=== PATIENT | female | born 1990 | race Caucasian/White ===

== ENCOUNTER 2017-07-16 15:47 | Emergency (ER) | payer BC, SELFPAY ==
[~2017-07-16] VITALS: Ht 167.6 cm; Wt 120.3 kg
[~2017-07-16 15:47] MED LIST: AMOX500C PO; HYDR-3713 PO; IBUP1TAB6 GT; PERI0.126 MT
[2017-07-16 16:01] VITALS: BP 142/83
[2017-07-16] MEDS ORDERED: [UNRECOGNIZED DRUG - CODE] PO (16:06)
== END 2017-07-16 16:19 | disposition home or self-care (01) ==
LOC: M ED 15:47
DX: J06.9 Acute upper respiratory infection, unspecified (principal); B34.9 Viral infection, unspecified; E66.9 Obesity, unspecified

== ENCOUNTER → 2018-04-07 | Outpatient (REF) | payer OTHER ==
[2018-04-07 13:27] LABS: BASO % 0.4 % (0.0-1.0); EOS % 0.6 % (0.0-3.0); HEMATOCRIT 41.2 % (36.0-47.0); HEMOGLOBIN 13.6 g/dl (12.0-15.5); IMMATURE GRANULOCYTE % 0.2 % (0-3.0); LYMPH # 2.1 10^3/uL (1.5-6.5); LYMPH % 41.6 % (24.0-44.0); MEAN CORPUSCULAR HEMOGLOBIN 29.3 pg (27.0-33.0); MEAN CORPUSCULAR VOLUME 88.8 fl (80.0-96.0); MONO # 0.3 10^3/uL (0.0-0.8); MONO % 5.8 % (0.0-5.0); NEUTROPHILS # 2.6 10^3/uL (1.8-7.7); NEUTROPHILS % 51.4 % (36.0-66.0); PLATELET COUNT, AUTOMATED 377 10^3/uL (150-450); RED BLOOD COUNT 4.64 10^6/uL (4.00-5.40); RED CELL DISTRIBUTION WIDTH 12.1 % (11.5-14.5); WHITE BLOOD COUNT 5.1 10^3/uL (4.0-10.0)
[2018-04-07 13:41] LABS: TESTOSTERONE 36 NG/DL (14-76)
[2018-04-07 13:41] LABS: PROLACTIN 18.2 NG/ML
[2018-04-07 13:55] LABS: FREE T4 1.03 NG/DL (0.76-1.46); THYROID STIMULATING HORMONE 0.956 uIU/ML (0.358-3.740)
[2018-04-07 14:01] LABS: ESTIMATED AVERAGE GLUCOSE 97 MG/DL (60-110)
== END ==
LOC: M LABDRWAD 12:43
DX: N92.1 Excessive and frequent menstruation with irregular cycle (principal); L68.0 Hirsutism
CPT/HCPCS: 84146

== ENCOUNTER → 2018-06-08 | Outpatient (CLI) | payer OTHER ==
[2018-06-08 19:50] LABS: BASO % 0.3 % (0.0-1.0); EOS # 0.1 10^3/uL (0.0-0.50); EOS % 0.7 % (0.0-3.0); HEMATOCRIT 40.2 % (36.0-47.0); HEMOGLOBIN 13.5 g/dl (12.0-15.5); IMMATURE GRANULOCYTE % 0.3 % (0-3.0); LYMPH % 36.2 % (24.0-44.0); MEAN CORPUSCULAR HEMOGLOBIN 29.3 pg (27.0-33.0); MEAN CORPUSCULAR HGB CONC 33.6 g/dl (32.0-36.5); MEAN CORPUSCULAR VOLUME 87.2 fl (80.0-96.0); MONO # 0.5 10^3/uL (0.0-0.8); MONO % 4.5 % (0.0-5.0); NEUTROPHILS # 6.4 10^3/uL (1.8-7.7); PLATELET COUNT, AUTOMATED 385 10^3/uL (150-450); RED BLOOD COUNT 4.61 10^6/uL (4.00-5.40)
[2018-06-08 19:54] LABS: ANION GAP 9 MEQ/L (8-16); BLOOD UREA NITROGEN 11 MG/DL (7-18); CALCIUM LEVEL 8.7 MG/DL (8.5-10.1); CARBON DIOXIDE LEVEL 25 MEQ/L (21-32); CHLORIDE LEVEL 107 MEQ/L (98-107); CREATININE FOR GFR 0.73 MG/DL (0.55-1.30); GLOMERULAR FILTRATION RATE > 60.0 (>60); GLUCOSE, FASTING 97 MG/DL (70-100); SODIUM LEVEL 141 MEQ/L (136-145)
[2018-06-11 00:10] LABS: EBV VIRAL CAPSID AG IgM <36.0 U/mL (0.0-35.9)
[2018-06-11 00:10] LABS: EBV AB TO NUCLEAR ANTIGEN 61.6 U/mL (0.0-17.9)
== END ==
LOC: M ADAMS 17:20
DX: J02.0 Streptococcal pharyngitis (principal)

== ENCOUNTER → 2018-06-17 | Outpatient (REF) | payer OTHER | LOC: M LAB REF 12:11 | DX: J02.9 Acute pharyngitis, unspecified (principal) ==

== ENCOUNTER 2019-01-28 08:18 | Emergency (ER) | payer OTHER ==
[~2019-01-28] VITALS: Ht 167.6 cm; Wt 123.4 kg
[~2019-01-28 08:18] MED LIST changes: +GUAI100S27 PO; +KARI28TA; +[UNRECOGNIZED DRUG - CODE] PO
[2019-01-28] MEDS ORDERED: ALBU17IN2 INH (08:53)
[2019-01-28] MEDS ORDERED: GUAI1SOL2 PO (08:56)
[2019-01-28] MEDS ORDERED: SUCR1SS PO (08:57)
[2019-01-28] MEDS ORDERED: KETOROLAC 60 MG/2 ML VIAL (J1885) IM ONE (09:00)
[2019-01-28 09:54] VITALS: BP 118/70
== END 2019-01-28 09:55 | disposition home or self-care (01) ==
LOC: M ED 08:18
DX: J06.9 Acute upper respiratory infection, unspecified (principal); R07.89 Other chest pain; Z88.8 Allergy status to other drugs, medicaments and biological substances
CPT/HCPCS: 85379; 96372; 99283; J1885

== ENCOUNTER 2019-02-01 11:35 | Emergency (ER) | payer OTHER ==
[~2019-02-01] VITALS: Ht 167.6 cm; Wt 122.6 kg
[~2019-02-01 11:35] MED LIST changes: +ALBU17IN2 INH; +GUAI1SOL2 PO; +SUCR1SS PO
--- NOTE | 2019-02-01 13:52 | REP ---
CHEST, TWO VIEWS: Comparison: 01/27/2019. There is no evidence of acute infiltrate. No pleural effusion is seen. The heart is normal in size. The mediastinal silhouette is unremarkable. The visualized osseous structures are intact. IMPRESSION: No acute pulmonary disease. Electronically Signed by Lito Mckee MD 02/03/2019 11:47 A
[2019-02-01 14:15] VITALS: BP 126/88
[2019-02-01] MEDS ORDERED: PRED20TA PO (14:21)
== END 2019-02-01 14:29 | disposition home or self-care (01) ==
LOC: M ED 11:35
DX: J06.9 Acute upper respiratory infection, unspecified (principal); Z79.899 Other long term (current) drug therapy; Z88.8 Allergy status to other drugs, medicaments and biological substances

== ENCOUNTER → 2020-04-03 | Outpatient (CLI) | payer OTHER ==
[~2020-04-03] MED LIST changes: -ALBU17IN2 INH; +GUAI100L6 PO; -GUAI100S27 PO; +METHACHOLINE KIT (J7674) INH ONE; +PRED20TA PO; +PROV108A INH
--- NOTE | 2020-04-03 11:06 | PFTRPT ---
Height: 68.00 Inches Weight: 279.00 Lbs BSA: 2.35 Diagnosis: R06.00 DATE OF STUDY: 04/03/2020 ORDERED BY: Dr. White INTERPRETATION: Study of excellent technical quality. Under protocol, methacholine was administered. At a dose of 0.25 mg (1.375 CDUs), a 27% decline in the FEV1 was noted. PC of 0.08 is significant. Flow rates did return to baseline post bronchodilator administration. IMPRESSION: Positive methacholine challenge study. MTDD
== END ==
LOC: M CARPUL 10:27
PROVIDERS: ATTEND Internal Medicine Pulmonary Disease
DX: R06.00 Dyspnea, unspecified (principal)
CPT/HCPCS: 94070; J7674

== ENCOUNTER → 2020-07-26 | Outpatient (REF) | payer OTHER ==
[~2020-07-26] MED LIST changes: -METHACHOLINE KIT (J7674) INH ONE
[2020-07-26 13:15] LABS: BASO % 0.4 % (0.0-1.0); EOS % 0.5 % (0.0-3.0); HEMATOCRIT 43.2 % (36.0-47.0); HEMOGLOBIN 13.9 g/dl (12.0-15.5); LYMPH # 2.4 10^3/uL (1.5-5.0); LYMPH % 29.7 % (24.0-44.0); MEAN CORPUSCULAR HEMOGLOBIN 29.3 pg (27.0-33.0); MEAN CORPUSCULAR HGB CONC 32.2 g/dl (32.0-36.5); MEAN CORPUSCULAR VOLUME 90.9 fl (80.0-96.0); MONO # 0.5 10^3/uL (0.0-0.8); MONO % 6.6 % (0.0-5.0); NEUTROPHILS % 62.4 % (36.0-66.0); PLATELET COUNT, AUTOMATED 390 10^3/uL (150-450); RED BLOOD COUNT 4.75 10^6/uL (4.00-5.40)
[2020-07-26 13:20] LABS: ALBUMIN 3.4 GM/DL (3.2-5.2); ALT/SGPT 19 U/L (12-78); BILIRUBIN,TOTAL 0.6 MG/DL (0.2-1.0); BLOOD UREA NITROGEN 12 MG/DL (7-18); CARBON DIOXIDE LEVEL 28 MEQ/L (21-32); CHLORIDE LEVEL 107 MEQ/L (98-107); CHOLESTEROL LEVEL 251 MG/DL (<200); CHOLESTEROL RISK RATIO 3.585 (<5); CREATININE FOR GFR 0.79 MG/DL (0.55-1.30); GLOMERULAR FILTRATION RATE > 60.0 (>60); GLUCOSE, FASTING 80 MG/DL (70-100); HDL CHOLESTEROL 70 MG/DL (>40); LDL CHOLESTEROL 149 MG/DL (<100); NON-HDL-C 181 MG/DL; POTASSIUM SERUM 4.3 MEQ/L (3.5-5.1); SODIUM LEVEL 139 MEQ/L (136-145); TOTAL PROTEIN 7.2 GM/DL (6.4-8.2); TRIGLYCERIDES LEVEL 160 MG/DL (<150)
== END ==
LOC: M SFHCADAM 12:27
PROVIDERS: ATTEND Family Medicine
DX: Z00.00 Encounter for general adult medical examination without abnormal findings (principal)

== ENCOUNTER → 2020-09-13 | Outpatient (REF) | payer OTHER | LOC: M SFHCADAM 15:05 | DX: Z32.00 Encounter for pregnancy test, result unknown (principal) ==

== ENCOUNTER → 2020-10-04 | Outpatient (REF) | payer OTHER ==
[2020-10-04 13:59] LABS: FREE T4 1.08 NG/DL (0.76-1.46); LUTEINIZING HORMONE 3.5 mIU/mL; PROLACTIN 5.1 NG/ML; THYROID STIMULATING HORMONE 0.836 uIU/ML (0.358-3.740)
== END ==
LOC: M SFHCADAM 09:15
PROVIDERS: ATTEND Family Medicine
DX: N91.2 Amenorrhea, unspecified (principal)

== ENCOUNTER → 2020-10-18 | Outpatient (CLI) | payer OTHER ==
--- NOTE | 2020-10-19 02:49 | REP ---
INDICATION: PELVIC PAIN AMENORRHEA COMPARISON: 10/24/2013 TECHNIQUE: Transabdominal pelvic ultrasound followed by transvaginal examination for better evaluation of the endometrium and adnexa with color Doppler evaluation of the ovaries. FINDINGS: Bladder is unremarkable and measures 8.8 x 10.4 x 10.0 cm. Normal anteverted uterus measures 7.3 x 2.6 x 3.8 cm. The endometrial complex measures 1.8 mm thickness. No discrete uterine or endometrial abnormalities are appreciated. Bilateral ovaries are normal in appearance and vascularity without evidence for torsion. Right ovary measures 2.0 x 1.6 x 2.0 cm; R I = 0.52. Left ovary measures 2.6 x 1.8 x 2.0 cm and includes 1.2 cm dominant follicle; R I = 0.57. No significant pelvic fluid or adnexal mass lesion noted. IMPRESSION: Normal pelvic ultrasound. <Electronically signed by Taran Vila > 10/19/20 0245
== END ==
LOC: M RAD 10:09
PROVIDERS: ATTEND Family Medicine
DX: N91.2 Amenorrhea, unspecified (principal)

== ENCOUNTER → 2021-08-09 | Outpatient (REF) | LOC: M LABSMTC 10:25 | PROVIDERS: ATTEND Pediatrics | DX: Z20.828 Contact with and (suspected) exposure to other viral communicable diseases (principal) ==

== ENCOUNTER 2021-10-28 09:48 | Emergency (ER) | payer BC, OTHER ==
[~2021-10-28] VITALS: Ht 167.6 cm; Wt 129.6 kg
[2021-10-28 09:48] VITALS: BP 139/84
--- OUTSIDE RECORDS SUMMARY | 2021-10-28 09:57 | CCD ---
Author Author [facility] Organization [facility] Address Unknown Phone Unavailable Care Team Providers Care Store Team Leader Name Role Phone Clair WHITFIELD MD Unavailable Unavailable Clair WHITFIELD MD Unavailable Unavailable Clair WHITFIELD MD Unavailable Unavailable Clair WHITFIELD MD Unavailable Unavailable Clair WHITFIELD MD Unavailable Unavailable Clair WHITFIELD MD Unavailable Unavailable Clair WHITFIELD MD Unavailable Unavailable Clair WHITFIELD MD Unavailable Unavailable Clair WHITFIELD MD Unavailable Unavailable Clair WHITFIELD MD Unavailable Unavailable Clair WHITFIELD MD Unavailable Unavailable Clair WHITFIELD MD Unavailable Unavailable Clair WHITFIELD MD Unavailable Unavailable Clair WHITFIELD MD Unavailable Unavailable Clair WHITFIELD MD Unavailable Unavailable Clair WHITFIELD MD Unavailable Unavailable Clair WHITFIELD MD Unavailable Unavailable Clair WHITFIELD MD Unavailable Unavailable Clair WHITFIELD MD Unavailable Unavailable Clair WHITFIELD MD Unavailable Unavailable Clair WHITFIELD MD Unavailable Unavailable Clair WHITFIELD MD Unavailable Unavailable Clair WHITFIELD MD Unavailable Unavailable Clair WHITFIELD MD Unavailable Unavailable Clair WHITFIELD MD Unavailable Unavailable Clair WHITFIELD MD Unavailable Unavailable Clair WHITFIELD MD Unavailable Unavailable Clair WHITFIELD MD Unavailable Unavailable Clair WHITFIELD MD Unavailable Unavailable Clair WHITFIELD MD Unavailable Unavailable Clair WHITFIELD MD Unavailable Unavailable Clair WHITFIELD MD Unavailable Unavailable Clair WHITFIELD MD Unavailable Unavailable Clair WHITFIELD MD Unavailable Unavailable Clair WHITFIELD MD Unavailable Unavailable Clair WHITFIELD MD Unavailable Unavailable Clair WHITFIELD MD Unavailable Unavailable Clair WHITFIELD MD Unavailable Unavailable Clair WHITFIELD MD Unavailable Unavailable Clair WHITFIELD MD Unavailable Unavailable Clair WHITFIELD MD Unavailable Unavailable Clair WHITFIELD MD Unavailable Unavailable Clair WHITFIELD MD Unavailable Unavailable Clair WHITFIELD MD Unavailable Unavailable Clair WHITFIELD MD Unavailable Unavailable [facility] Unavailable Jen Carrion MD Unavailable Unavailable Jen Carrion MD Unavailable Unavailable Jen Carrion MD Unavailable Unavailable Jen Carrion MD Unavailable Unavailable Jen Carrion MD Unavailable Unavailable Jen Carrion MD Unavailable Unavailable Jen Carrion MD Unavailable Unavailable Jen Carrion MD Unavailable Unavailable Jen Carrion MD Unavailable Unavailable Jen Carrion MD Unavailable Unavailable Jen Carrion MD Unavailable Unavailable Jen Carrion MD Unavailable Unavailable Jen Carrion MD Unavailable Unavailable Jen Carrion MD Unavailable Unavailable Jen Carrion MD Unavailable Unavailable Jen Carrion MD Unavailable Unavailable Jen Carrion MD Unavailable Unavailable Jen Carrion MD Unavailable Unavailable Jen Carrion MD Unavailable Unavailable Jen Carrion MD Unavailable Unavailable Jen Carrion MD Unavailable Unavailable Jen Carrion MD Unavailable Unavailable Jen Carrion MD Unavailable Unavailable Jen Carrion MD Unavailable Unavailable Jen Carrion MD Unavailable Unavailable RING, K FROY PA Unavailable Unavailable RING, K FROY PA Unavailable Unavailable RING, K FROY PA Unavailable Unavailable RING, K FROY PA Unavailable Unavailable RING, K FROY PA Unavailable Unavailable RING, K FROY PA Unavailable Unavailable RING, K FROY PA Unavailable Unavailable RING, K FROY PA Unavailable Unavailable RING, K FROY PA Unavailable Unavailable RING, K FROY PA Unavailable Unavailable RING, K FROY PA Unavailable Unavailable RING, K FROY PA Unavailable Unavailable RING, K FROY PA Unavailable Unavailable RING, K FROY PA Unavailable Unavailable RING, K FROY PA Unavailable Unavailable RING, K FROY PA Unavailable Unavailable RING, K FROY PA Unavailable Unavailable RING, K FROY PA Unavailable Unavailable RING, K FROY PA Unavailable Unavailable RING, K FROY PA Unavailable Unavailable RING, K FROY PA Unavailable Unavailable RING, K FROY PA Unavailable Unavailable RING, K FROY PA Unavailable Unavailable Flaco, A Mary DDS Unavailable Unavailable Flaco, A Mary DDS Unavailable Unavailable Flaco, A Mary DDS Unavailable Unavailable Flaco, A Mary DDS Unavailable Unavailable Re-disclosure Warning The records that you are about to access may contain information from federally-assisted alcohol or drug abuse programs. If such information is present, then the following federally mandated warning applies: This information has been disclosed to you from records protected by federal confidentiality rules (42 CFR part 2). The federal rules prohibit you from making any further disclosure of this information unless further disclosure is expressly permitted by the written consent of the person to whom it pertains or as otherwise permitted by 42 CFR part 2. A general authorization for the release of medical or other information is NOT sufficient for this purpose. The Federal rules restrict any use of the information to criminally investigate or prosecute any alcohol or drug abuse patient.The records that you are about to access may contain highly sensitive health information, the redisclosure of which is protected by Article 27-F of the [facility] Public Health law. If you continue you may have access to information: Regarding HIV / AIDS; Provided by facilities licensed or operated by the [facility] Office of Mental Health; or Provided by the [facility] Office for People With Developmental Disabilities. If such information is present, then the following [facility] mandated warning applies: This information has been disclosed to you from confidential records which are protected by state law. State law prohibits you from making any further disclosure of this information without the specific written consent of the person to whom it pertains, or as otherwise permitted by law. Any unauthorized further disclosure in violation of state law may result in a fine or skilled nursing sentence or both. A general authorization for the release of medical or other information is NOT sufficient authorization for further disc losure. Family History Family Member Name Family Member Gender Family Member Status Date o f Status Description Data Source(s) Unknown Unknown Problem MEDENT ([facility]) mgm,mother Unknown Unknown Problem MEDENT ([facility]) Unknown Female Problem MEDENT ([facility]) Encounters Encounter Providers Location Date Indications Data Source(s ) Outpatient Attender: Dari Carrion MD 1 06:06:00 PM EDT - 09/06/2021 06:41:19 PM EDT DocuTap ([facility]) [place] [address] [address] 08/10/2021 12:00:00 AM EDT eCW1 ([facility]) [place] [address] [address] 03/20/2021 12:00:00 AM EDT eCW1 ([facility]) [place] [address] [facility] [place] [address] 03/15/2021 12:00:00 AM EDT eCW1 ([facility]) [place] [address] [address] 03/02/2021 12:00:00 AM EDT eCW1 ([facility]) [place] [address] [address] 02/21/2021 12:00:00 AM EDT eCW1 ([facility]) Outpatient 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</td><td>[facility]</td><td>01/10/2021</td><td>1:49PM</td><td>2:32PM</td><td></td>Unknown Attender: Jessica Becerra RD [facility] 01/10/2021 01:49:[address] - 01/10/2021 02:32:00 PM EST DARRYL ([facility]) Unknown<td ID="encounterTypeDescriptionI D1">D Emergency</td><td>Mary Sam DDS</td><td>[facility]</td><td>12/20/2020</td><td>1:47PM</td><td>2:23PM</td><td></td> Attender: Mary Sam DDS [facility] 12/20/2020 01:47:00 PM EST - 12/20/2020 02:23:00 PM EST DARRYL ([facility]) (TV_Virtual) Virtual [facility] Visit [address] [place] [phone] 12/20/2020 12:00:00 AM EST eCW1 ([facility]) Outpatient Attender: FROY [facility] 12/03/2020 07:25:00 AM EST MEDENT ([facility]) (TV_Virtual) Virtual [facility] Visit [address] [place] [phone] 11/29/2020 12:00:00 AM EST eCW1 ([facility]) Outpatient [address] [place] [phone] 11/01/2020 12:00:00 AM EST eCW1 ([facility]) (BHVHLTH) Behave Health Scheduled Visit [address] [place] [address] 10/18/2020 12:00:00 AM EST eCW1 ([facility]) Unknown [address] [place] [phone] 10/06/2020 12:00:00 AM EST eCW1 ([facility]) Outpatient [facility] [address] 10/04/2020 12:00:00 AM EST eCW1 ([facility]) Unknown [address] [place] [phone] 10/04/2020 12:00:00 AM EST eCW1 ([facility]) ([facility]) [facility] Scheduled Visit [address] [place] [address] 09/27/2020 12:00:00 AM EST eCW1 ([facility]) Unknown [address] [facility] [address] 09/14/2020 12:00:00 AM EDT eCW1 ([facility]) ([facility]) [facility] Scheduled Visit [address] [place] [address] 09/13/2020 12:00:00 AM EDT eCW1 ([facility]) Unknown [address] [facility] [address] 09/13/2020 12:00:00 AM EDT eCW1 ([facility]) Outpatient Attender: AZUL Celestin 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 Medications Medication Brand Name Start Date Product Form Dose Route Admi nistrative Instructions Pharmacy Instructions Status Indications Reaction Description Data Source(s) Levonorgestrel/Ethinyl Estradiol Levonorgestrel/Ethinyl Estr adiol 01/17/2021 12:00:00 AM EST ORAL active M EDENT ([facility]) Prednisone 20 MG Oral Tablet Prednisone 12/03/2020 12:00:00 AM EST ORAL active MEDENT ([facility]) Insurance Providers Payer name Policy type / Coverage type Policy ID Covered constitution party ID Covered constitution party's relationship to chapman Policy Chapman Plan Information [employer]BS [place] PPO 302/307 [id number] SP [id number] Workers Comp Workers Compensation 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 [id number] Employee [id number] AN[employer] [id number] ANSI-Commercial [id number] [facility] [employer] [id number] Self [id number] [facility] [employer] [id number] Self [id number] [facility] [employer] [id number] Self [id number] [facility] [id number] SP [id number] [facility] [employer] [id number] Self [id number] [facility] [employer] [id number] Self [id number] [facility] [employer] [id number] Self [id number] [facility] [id number] SP [id number] SELF PAY ONLY [id number] SP [id number] BCBS[employer] [id number] Self SELF PAY ONLY [id number] SP [id number] [employer] [place] PPO 302/307 [id number] SP [id number] [employer] [place] PPO 302/307 [id number] SP [id number] SELF PAY UNAVAILABLE SP UNAVAILA BLE [facility] [id number] SP [id number] [facility] [id number] SP [id number] [facility] [id number] SP [id number] [employer] [id number] Problems, Conditions, and Diagnoses Code Display Name Description Problem Type Effective Dates Data Source(s) F41.9 [id number] Anxiety Problem 10/04/2020 12:00:00 AM ES T eCW1 ([facility]) N91.2 [id number] Amenorrhea Problem 10/04/2020 12:00:00 AM ES T eCW1 ([facility]) F41.1 [id number] Generalized anxiety disorder Problem 020 12:00:00 AM EDT eCW1 ([facility]) Surgeries/Procedures Procedure Description Date Indications Data Source(s) Periodontal Charting Periodontal Charting 01/10/2021 12:00:00 AM ES T DARRYL ([facility]) Oral Hygiene/[facility] Oral Hygiene/[facility] 01/10/2021 12:00:00 AM EST IND [employer] ([facility]) Nutritional Counseling Nutritional Counseling 01/10/2021 12:00:00 A M bodaplanes ([facility]) Prophylaxis Adult Prophylaxis Adult 01/10/2021 12:00:00 AM EST IND [employer] ([facility]) Bitewing - 4 radiographic images Bitewing - 4 radiographic i mages 01/10/2021 12:00:00 AM EST DARRYL ([facility]) Extract Erupted Tooth or Exposed Root Extract Erupted Tooth or Exposed Root 12/20/2020 12:00:00 AM EST DARYRL ([facility]) Limited Oral Evaluation Limited Oral Evaluation 12/20/2020 12:00:00 AM EST DARRYL ([facility]) Results ID Date Data Source [id number] 08/09/2021 10:55:00 AM EDT [facility] Name Value Range Interpretation Code Description Data Aleena rce(s) Supporting Document(s) SARS coronavirus 2 RNA [Presence] in Res piratory specimen by KEMAR with probe detection POSITIVE [facility] This lab was ordered by [facility] a nd reported by [facility]. ID Date Data Source [id number] 12/03/2020 12:00:00 AM EST [facility] Name Value Range Interpretation Code Description Data Aleena rce(s) Supporting Document(s) SARS-CoV2 Rapid Antigen Positive [facility] This lab was ordered by [facility] and reported by [facility]. ID Date Data Source PROLACTIN 10/04/2020 12:00:00 AM EST eCW1 ([facility]) Name Value Range Interpretation Code Description Data Aleena rce(s) Supporting Document(s) 5.1 eCW1 ([facility]) ID Date Data Source HCG, SERUM QUANTITATIVE 10/04/2020 12:00:00 AM EST eCW1 ([facility]) Name Value Range Interpretation Code Description Data Aleena rce(s) Supporting Document(s) < 1.0 HCG, SERUM QUANTITATIVE eCW1 ( [facility]) ID Date Data Source FREE T4 & TSH PANEL 10/04/2020 12:00:00 AM EST eCW1 ([facility]) Name Value Range Interpretation Code Description Data Aleena rce(s) Supporting Document(s) 0.836 0.358-3.740 eCW1 ([facility]) 1.08 0.76-1.46 eCW1 ([facility]) ID Date Data Source FSH & LH EVAL 10/04/2020 12:00:00 AM EST eCW1 ([facility]) Name Value Range Interpretation Code Description Data Aleena rce(s) Supporting Document(s) 3.5 eCW1 ([facility]) 7.0 eCW1 ([facility]) ID Date Data Source [id number] 09/06/2020 12:00:00 PM EDT MEDENT ([facility]) Name Value Range Interpretation Code Description Data Aleena rce(s) Supporting Document(s) TP Reflex HPV ASCUS Laboratory test result MEDENT ([facility]) SPECIMEN PART------ A. 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 SPECIMEN ADEQUACY:Satisfactory for evaluation. Endocervical/transformation zone component present. TP Reflex HPV ASCUS Laboratory test result MEDENT ([facility]) Procedure Social History Code Duration Value Status Description Data Source(s ) Smoking 02/21/2021 12:00:00 AM EDT Never Smoker completed Never S moker eCW1 ([facility]) Smoking 02/21/2021 12:00:00 AM EDT Never Smoker completed Never S moker eCW1 ([facility]) Smoking 02/21/2021 12:00:00 AM EDT Never Smoker completed Never S moker eCW1 ([facility]) Smoking 02/21/2021 12:00:00 AM EDT Never Smoker completed Never S moker eCW1 ([facility]) Smoking 02/21/2021 12:00:00 AM EDT Never Smoker completed Never S moker eCW1 ([facility]) Smoking 01/17/2021 12:00:00 AM EST Patient has never smoked co mpleted Patient has never smoked MEDENT ([facility]) Smoking 12/03/2020 12:00:00 AM EST Patient has never smoked co mpleted Patient has never smoked MEDENT ([facility]) Smoking 10/04/2020 12:00:00 AM EST Never Smoker completed Never S moker eCW1 ([facility]) Smoking 10/04/2020 12:00:00 AM EST Never Smoker completed Never S moker eCW1 ([facility]) Smoking 10/04/2020 12:00:00 AM EST Never Smoker completed Never S moker eCW1 ([facility]) Smoking 10/04/2020 12:00:00 AM EST Never Smoker completed Never S moker eCW1 ([facility]) Smoking 10/04/2020 12:00:00 AM EST Never Smoker completed Never S moker eCW1 ([facility]) Smoking 10/04/2020 12:00:00 AM EST Never Smoker completed Never S moker eCW1 ([facility]) Smoking 10/04/2020 12:00:00 AM EST Never Smoker completed Never S moker eCW1 ([facility]) Smoking 10/04/2020 12:00:00 AM EST Never Smoker completed Never S moker eCW1 ([facility]) Smoking 10/04/2020 12:00:00 AM EST Never Smoker completed Never S moker eCW1 ([facility]) Smoking 09/06/2020 12:00:00 AM EDT Never Smoker completed Never S moker eCW1 ([facility]) Smoking 09/06/2020 12:00:00 AM EDT Never Smoker completed Never S moker eCW1 ([facility]) Smoking 09/06/2020 12:00:00 AM EDT Never Smoker completed Never S moker eCW1 ([facility]) Smoking 09/06/2020 12:00:00 AM EDT Never Smoker completed Never S moker eCW1 ([facility]) Vital Signs ID Date Data Source UNK Name Value Range Interpretation Code Description Data Source(s) Body height 67.25 [in_i] 67.25 [in_i] eCW1 ([facility]) Body weight 280 [lb_av] 280 [lb_av] eCW1 ([facility]) Body mass index (BMI) [Ratio] 43.52 kg/m2 43.52 kg/m2 eCW1 ([facility]) Body temperature 98.0 [degF] 98.0 [degF] eCW1 ( [facility]) Systolic blood pressure 132 mm[Hg] 132 mm[Hg] e CW1 ([facility]) Respiratory rate 18 /min 18 /min eCW1 ([facility]) Diastolic blood pressure 74 mm[Hg] 74 mm[Hg] eCW1 ([facility]) Systolic blood pressure 125 mm[Hg] 125 mm[Hg] M EDENT ([facility]) Diastolic blood pressure 75 mm[Hg] 75 mm[Hg] MEDENT ([facility]) Heart rate 91 /min 91 /min MEDENT ([facility]) Respiratory rate 16 /min 16 /min MEDENT ( [facility]) Oxygen saturation in Arterial blood by Pulse oximetry 98 % 98 % MEDENT ([facility]) Body temperature 97.8 [degF] 97.8 [degF] MEDENT ([facility]) Body weight 285.00 [lb_av] 285.00 [lb_av] MEDEN T ([facility]) Body height 66 [in_i] 66 [in_i] MEDENT ([facility]) 5'6" Body mass index (BMI) [Ratio] 46.0 kg/m2 46.0 k g/m2 MEDENT ([facility]) Diastolic blood pressure 74 mm[Hg] 74 mm[Hg] eCW1 ([facility]) Body weight 283 [lb_av] 283 [lb_av] eCW1 ([facility]) Body height 67.25 [in_i] 67.25 [in_i] eCW1 ([facility]) Body mass index (BMI) [Ratio] 43.99 kg/m2 43.99 kg/m2 eCW1 ([facility]) Heart rate 86 /min 86 /min eCW1 ([facility]) Respiratory rate 18 /min 18 /min eCW1 ([facility]) Body temperature 96.3 [degF] 96.3 [degF] eCW1 ( [facility]) Systolic blood pressure 120 mm[Hg] 120 mm[Hg] e CW1 ([facility]) Body weight 283 [lb_av] 283 [lb_av] eCW1 ([facility]) Body height 67.25 [in_i] 67.25 [in_i] eCW1 ([facility]) Body mass index (BMI) [Ratio] 43.99 kg/m2 43.99 kg/m2 eCW1 ([facility]) Heart rate 86 /min 86 /min eCW1 ([facility]) Respiratory rate 18 /min 18 /min eCW1 ([facility]) Body temperature 96.3 [degF] 96.3 [degF] eCW1 ( [facility]) Systolic blood pressure 120 mm[Hg] 120 mm[Hg] e CW1 ([facility]) Diastolic blood pressure 74 mm[Hg] 74 mm[Hg] eCW1 ([facility]) Body mass index (BMI) [Ratio] 44.0 kg/m2 44.0 k g/m2 MEDENT ([facility]) Systolic blood pressure 122 mm[Hg] 122 mm[Hg] M EDENT ([facility]) Diastolic blood pressure 68 mm[Hg] 68 mm[Hg] MEDENT ([facility]) Body height 66.75 [in_i] 66.75 [in_i] MEDENT ([facility]) 5'6.75" Body weight 279.00 [lb_av] 279.00 [lb_av] MEDEN T ([facility]) Body surface area Derived from formula 2.32 m2 2.32 m2 MEDENT ([facility])
--- OUTSIDE RECORDS SUMMARY | 2021-10-28 09:57 | CCD ---
Author Author [facility] [employer] [facility] Organization [facility] [employer] [facility] [employer] Address Unknown Phone Unavailable Care Team Providers Care Energy Audit Advisor Name Role Phone Katy Montalvo Unavailable PROBLEMS Type Condition ICD9-CM Code CSO35-CW Code Onset Dates Condition S tatus W/U Status Risk SNOMED Code Notes Problem Amenorrhea N91.2 Active confirmed 50588042 Problem Anxiety F41.9 Active confirmed 48442797 Problem Morbid obesity, unspecified obesity type E66.01 Active confirmed 186560318 Problem Mood disorder F39 Active confirmed 413250 05 Problem Generalized anxiety disorder F41.1 Active confirme d 01300063 ALLERGIES Allergen (clinical drug ingredient) Drug/Non Drug Allergy do cumented on EMR Reaction Allergy Type Onset Date Status albuterol Albuterol Sulfate([facility] Code:[address]-75) Unknown Drug Allergy Active Lactose intolerance GI upset Non Drug Allergy Active ENCOUNTERS from 1991 to 2021-08-11 Encounter Location Date Provider Diagnosis [address] [place] [address] Jul, Katy Jonestejudith IMMUNIZATIONS Vaccine Route Administration Date Status Pneumococcal Adult 0.5mL Pneumovax 23 IM Intramuscular April 19, 2020 Administered SOCIAL HISTORY Tobacco Use: Social History Observation Description Date Details (start date - stop date) Never Smoker Sex Assigned At : Social History Observation Description Sex Assigned At Unknown Education: Question Answer Notes Level of Education: Finished College Audit Question Answer Notes Total Score: 0 Interpretation: Alcohol Education Language: Question Answer Notes Languages spoken: Ugandan Mormon: Question Answer Notes Mormon No yazidism beliefs that would impact health care. Sexual Hx: Question Answer Notes Had sex in the last 12 months (vaginal, oral, or anal)? Yes Have you ever had an STD? No with Men only Drug and Alcohol Question Answer Notes Total Score: 0 Interpretation: No problems reported Alcohol Screening: Question Answer Notes Did you have a drink containing alcohol in the past year? Ye s Points 1 Interpretation Negative How often did you have six or more drinks on one occas ion in the past year? Never (0 points) How many drinks did you have on a typica l day when you were drinking in the past year? 1 or 2 (0 points) How often did you have a drink containing alcohol in t he past year? Monthly or less (1 point) BMI Care Goal Follow-Up Question Answer Notes Above Normal BMI Follow-Up Giving encouragement to exercise Tobacco Use: Question Answer Notes Are you a: never smoker REASON FOR REFERRAL No Information VITAL SIGNS No information MEDICATIONS Medication SIG (Take, Route, Frequency, Duration) Notes Start Da te End Date Status Arnuity Ellipta 200 MCG/ACT TAKE 1 PUFF BY MOUTH EVERY DAY Inhal ation for 90 Not-Taking guaiFENesin 200 MG 1 tablet as needed Orally every 4 hrs for 7 d ay(s) Apr, Not-Taking ZyrTEC Allergy 10 MG 1 capsule Orally Once a day for 30 day(s) Apr, Not-Taking OptiChamber Osiris - USE THIS WITH INHALER DIRECTED BY PHYSICIA N for 30 Active Kariva 0.15-0.02/0.01 MG (06/04) TAKE 1 TABLET BY MOUTH ONCE A DAY. 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 [facility] Medical History COVID-19 (07/2020) Medical History COVID-19 (11/2020) and influenza Medical History anxiety, improved off inhaled steroid Surgical History wisdom teeth Goals Section No Information Health Concerns No Information MEDICAL EQUIPMENT No Information MENTAL STATUS No Information FUNCTIONAL STATUS No Information ASSESSMENTS No Information PLAN OF TREATMENT Next Appt Details Provider Name:Katy Montalvo, 2021-08-30 11:30:00 AM, [address], , [place], [address], Insurance Providers Payer Name Payer Address Payer Phone Insured Name Patient Relati onship to Insured Coverage Start Date Coverage End Date [facility] [address] [address] [facility] [phone] SOULEYMANE DOMINGUEZ self
[2021-10-28] MEDS ORDERED: AMOX500C PO (10:58)
[2021-10-28] MEDS ORDERED: NASA0.9A NARES (10:58)
[2021-10-28] MEDS ORDERED: FLUT15.820 NARES (10:58)
[2021-10-28] MEDS ORDERED: DIFL150T PO (11:00)
--- OUTSIDE RECORDS SUMMARY | 2021-10-28 11:14 | CCD ---
Author Author [facility] Organization [facility] Address Unknown Phone Unavailable Care Team Providers Care Electronics Test Engineer Name Role Phone Clair WHITFIELD MD Unavailable [...] MD Unavailable Unavailable [facility] Unavailable Jen Carrion MD Unavailable Unavailable Jen [...] is protected by Article 27-F of the [facility] Public Health law. If you continue you may have access to information: Regarding HIV / AIDS; Provided by facilities licensed or operated by the [facility] Office of Mental Health; or Provided by the [facility] Office for People With Developmental Disabilities. If such information is present, then the following [facility] mandated warning applies: This information has been [...] law may result in a fine or long term sentence or both. A general authorization for the release of medical or other information is NOT sufficient authorization for further disc losure. Family History Family Member Name Family Member Gender Family Member Status Date o f Status Description Data Source(s) Unknown Unknown Problem MEDENT ([facility]) mgm,mother Unknown Unknown Problem MEDENT ([facility]) Unknown Female Problem MEDENT ([facility] ) Encounters Encounter Providers Location Date Indications Data Source(s ) Outpatient Attender: Dari Carrion MD 1 06:06:00 PM EDT - 09/06/2021 06:41:19 PM EDT [facility] ([facility]) [place] [address] [facility] [place] [address] 08/10/2021 12:00:00 AM EDT eCW1 (Critical access hospital) Unknown [address] [facility] [place] [address] 03/20/2021 12:00:00 AM EDT eCW1 (Critical access hospital) Unknown [address] [facility] [place] [address] 03/15/2021 12:00:00 AM EDT eCW1 (Critical access hospital) Unknown [address] [facility] [place] [address] 03/02/2021 12:00:00 AM EDT eCW1 (Critical access hospital) Outpatient [address] [facility] [place] [address] 02/21/2021 12:00:00 AM EDT eCW1 (Critical access hospital) Outpatient Attender: AZUL [facility] product marketer 01/2021 01:00:00 PM EST MEDENT ([facility]) Unknown<td ID="encounterTypeDescriptionI D0">H Adult Prophy</td><td>Jessica Becerra [facility]</td><td>[facility]</td><td>01/10/2021</td><td>1:49PM</td><td>2:32PM</td><td></td> Attender: Jessica Becerra [facility] 01/10/2021 01:49:00 PM EST - 01/10/2021 02:32:00 PM EST DARRYL ([facility]) <td ID="encounterTypeDescriptionID1">D E mergency</td><td>Mary Sam DDS</td><td>[facility]</td><td>12/20/2020</td><td>1:47PM</td><td>2:23PM</td><td></td>Unknown Attender: Mary Sam DDS [facility] 12/20/2020 01:47:00 PM EST - 12/20/2020 02:23:00 PM EST DARRYL ([facility]) (TV_Virtual) Virtual [facility] Visit [address] [place] [address] 12/20/2020 12:00:00 AM EST eCW1 (Critical access hospital) Outpatient Attender: FROY Ngo [facility] 12/03/2020 07:25:00 AM EST MEDENT ([facility]) (TV_Virtual) Virtual Enc [facility] Visit [address] [place] [address] 11/29/2020 12:00:00 AM EST eCW1 (Critical access hospital) Outpatient [address] [place] [address] 11/01/2020 12:00:00 AM EST eCW1 (Critical access hospital) (BHVHLTH) Be[facility] Scheduled Visit [address] [place] [address] 10/18/2020 12:00:00 AM EST eCW1 (Critical access hospital) Unknown [address] [place] [address] 10/06/2020 12:00:00 AM EST eCW1 (Critical access hospital) Outpatient [address] [place] [address] 10/04/2020 12:00:00 AM EST eCW1 (Critical access hospital) [place] [address] [facility] [place] [address] 10/04/2020 12:00:00 AM EST eCW1 (Critical access hospital) (B[facility]) [facility] Scheduled Visit [address] [place] [address] 09/27/2020 12:00:00 AM EST eCW1 (Critical access hospital) Unknown [address] [facility] [place] [address] 09/14/2020 12:00:00 AM EDT eCW1 (Critical access hospital) (B[facility]) [facility] Scheduled Visit [address] [place] [address] 09/13/2020 12:00:00 AM EDT eCW1 (Critical access hospital) Unknown [address] [facility] [address] 09/13/2020 12:00:00 AM EDT eCW1 (Critical access hospital) Outpatient Attender: AZUL [facility] product marketer 10:45:00 AM EDT MEDENT ([facility]) Unknown [address] [facility] [place] [address] 08/31/2020 12:00:00 AM EDT eCW1 (Critical access hospital) Immunizations Vaccine Date Status Description Data Source(s) COVID-19 VACCINE Shama 01/22/2021 12:00:00 AM EST completed [facility] Vaccine Series Complete: YESThis Data wa s Submitted to [facility] Via [employer]. Medications Medication Brand Name Start Date Product Form Dose Route Admi nistrative Instructions Pharmacy Instructions Status Indications Reaction Description Data Source(s) Levonorgestrel/Ethinyl Estradiol Levonorgestrel/Ethinyl Estr adiol 01/17/2021 12:00:00 AM EST ORAL active M EDENT ([facility]) Prednisone 20 MG Oral Tablet Prednisone 12/03/2020 12:00:00 AM EST ORAL active MEDENT ([facility]) Insurance Providers Payer name Policy type / Coverage type Policy ID Covered constitution party ID Covered constitution party's relationship to chapman Policy Chapman Plan Information BCBS [place] MIC[place]LLEN PPO 302/307 [id number] SP [id number] Workers Comp Workers Compensation [id number] Self Bill Me Later (WC) Workers Compensation [id number] Self [employer] emp [id number] Employee [id number] ANSI-Commercial [id number] ANSI-Commercial [id number] ANSI-Commercial [id number] [facility] Hashable [id number] Self [id number] [facility] Commercial [id number] Self [id number] [facility] Hashable [id number] Self [id number] [id number] [id number] SP [id number] [facility] [id number] Self [id number] [facility] Hashable [id number] Self [id number] [facility] Hashable [id number] Self [id number] [employer] [id number] SP [id number] SELF PAY ONLY [id number] SP [id number] BCBS/[employer] Commercial [id number] Self SELF PAY ONLY [id number] SP [id number] BCBS [place] PPO 302/307 [id number] SP [id number] BCBS [place] PPO 302/307 [id number] SP [id number] SELF PAY UNAVAILABLE SP UNAVAILA BLE BCBS OF [place] WATN 306/[id number] SP [id number] [facility] [id number] SP [id number] [facility] [id number] SP [id number] [facility] [id number] SP [id number] Problems, Conditions, and Diagnoses Code Display Name Description Problem Type Effective Dates Data Source(s) F41.9 23710326 Anxiety Problem 10/04/2020 12:00:00 AM ES T eCW1 ([facility]) N91.2 03686571 Amenorrhea Problem 10/04/2020 12:00:00 AM ES T eCW1 ([facility]) F41.1 81210731 Generalized anxiety disorder Problem 020 12:00:00 AM EDT eCW1 ([facility]) Surgeries/Procedures Procedure Description Date Indications Data Source(s) Periodontal Charting Periodontal Charting 01/10/2021 12:00:00 AM ES [employer] [facility] Oral Hygiene/[facility] Oral Hygiene/[facility] 01/10/2021 12:00:00 AM MaPS ([facility]) Nutritional Counseling Nutritional Counseling 01/10/2021 12:00:00 A M [facility] Prophylaxis Adult Prophylaxis Adult 01/10/2021 12:00:00 AM MaPS ([facility]) Bitewing - 4 radiographic images Bitewing - 4 radiographic i mages 01/10/2021 12:00:00 AM MaPS ([facility]) Extract Erupted Tooth or Exposed Root Extract Erupted Tooth or Exposed Root 12/20/2020 12:00:00 AM MaPS ([facility]) Limited Oral Evaluation Limited Oral Evaluation 12/20/2020 12:00:00 AM EST DARRYL (Min) Results ID Date Data Source [id number] 08/09/2021 10:55:00 AM EDT [facility] Name Value Range Interpretation Code Description Data Aleena rce(s) Supporting Document(s) SARS coronavirus 2 RNA [Presence] in Res piratory specimen by KEMAR with probe detection POSITIVE [facility] This lab was ordered by [facility] a nd reported by [facility]. ID Date Data Source [id number] 12/03/2020 12:00:00 AM EST [facility] Name Value Range Interpretation Code Description Data Aleena rce(s) Supporting Document(s) SARS-CoV2 Rapid Antigen Positive [facility] This lab was ordered by [facility] and reported by [facility]. ID Date Data Source PROLACTIN 10/04/2020 12:00:00 AM EST eCW1 (Critical access hospital) Name Value Range Interpretation Code Description Data Aleena rce(s) Supporting Document(s) 5.1 eCW1 ([facility]) ID Date Data Source HCG, SERUM QUANTITATIVE 10/04/2020 12:00:00 AM EST eCW1 ([facility]) Name Value Range Interpretation Code Description Data Aleena rce(s) Supporting Document(s) < 1.0 HCG, SERUM QUANTITATIVE eCW1 ( [facility]) ID Date Data Source FREE T4 & TSH PANEL 10/04/2020 12:00:00 AM EST eCW1 (Critical access hospital) Name Value Range Interpretation Code Description Data Aleena rce(s) Supporting Document(s) 0.836 0.358-3.740 eCW1 ([facility]) 1.08 0.76-1.46 eCW1 ([facility]) ID Date Data Source FSH & LH EVAL 10/04/2020 12:00:00 AM EST eCW1 (Critical access hospital) Name Value Range Interpretation Code Description Data Aleena rce(s) Supporting Document(s) 3.5 eCW1 ([facility]) 7.0 eCW1 ([facility]) ID Date Data Source [id number] 09/06/2020 12:00:00 PM EDT MEDENT ([facility]) Name Value Range Interpretation Code Description Data Aleena rce(s) Supporting Document(s) TP Reflex HPV ASCUS Laboratory test result MEDENT ([facility]) SPECIMEN PART------ A. Cervical, Endocervical, ThinPrep Pap (Clinical Rehab Liaison) CYTOLOGY HX-------- Date of Last Menstrual Period: 06/24/20 Other Information:Previous Normal Pap: 09/01/19 Oral Contraceptives FINAL DIAGNOSIS---- INTERPRETATION: Negative for Intraepithelial Lesion or Malignancy. SPECIMEN ADEQUACY:Satisfactory for evaluation. Endocervical/transformation zone component present. TP Reflex HPV ASCUS Laboratory test result MEDSHEILA ([facility]) Procedure Social History Code Duration Value Status Description Data Source(s ) Smoking 02/21/2021 12:00:00 AM EDT Never Smoker completed Never S moker eCW1 ([facility]) Smoking 02/21/2021 12:00:00 AM EDT Never Smoker completed Never S moker eCW1 ([facility]) Smoking 02/21/2021 12:00:00 AM EDT Never Smoker completed Never S moker eCW1 ([facility]) Smoking 02/21/2021 12:00:00 AM EDT Never Smoker completed Never S moker eCW1 ([facility]) Smoking 02/21/2021 12:00:00 AM EDT Never Smoker completed Never S moker eCW1 ([facility]) Smoking 01/17/2021 12:00:00 AM EST Patient has never smoked co mpleted Patient has never smoked MEDENT ([facility]) Smoking 12/03/2020 12:00:00 AM EST Patient has never smoked co mpleted Patient has never smoked MEDENT ([facility]) Smoking 10/04/2020 12:00:00 AM EST Never Smoker completed Never S moker eCW1 ([facility]) Smoking 10/04/2020 12:00:00 AM EST Never Smoker completed Never S moker eCW1 ([facility]) Smoking 10/04/2020 12:00:00 AM EST Never Smoker completed Never S moker eCW1 ([facility]) Smoking 10/04/2020 12:00:00 AM EST Never Smoker completed Never S moker eCW1 ([facility]) Smoking 10/04/2020 12:00:00 AM EST Never Smoker completed Never S moker eCW1 ([facility]) Smoking 10/04/2020 12:00:00 AM EST Never Smoker completed Never S moker eCW1 ([facility]) Smoking 10/04/2020 12:00:00 AM EST Never Smoker completed Never S moker eCW1 ([facility]) Smoking 10/04/2020 12:00:00 AM EST Never Smoker completed Never S moker eCW1 ([facility]) Smoking 10/04/2020 12:00:00 AM EST Never Smoker completed Never S moker eCW1 ([facility]) Smoking 09/06/2020 12:00:00 AM EDT Never Smoker completed Never S moker eCW1 ([facility]) Smoking 09/06/2020 12:00:00 AM EDT Never Smoker completed Never S moker eCW1 ([facility]) Smoking 09/06/2020 12:00:00 AM EDT Never Smoker completed Never S moker eCW1 ([facility]) Smoking 09/06/2020 12:00:00 AM EDT Never Smoker completed Never S moker eCW1 ([facility]) Vital Signs ID Date Data Source UNK Name Value Range Interpretation Code Description Data Source(s) Body weight 280 [lb_av] 280 [lb_av] eCW1 ([facility]) Body height 67.25 [in_i] 67.25 [in_i] eCW1 ([facility]) Body mass index (BMI) [Ratio] 43.52 kg/m2 43.52 kg/m2 eCW1 ([facility]) Respiratory rate 18 /min 18 /min eCW1 ([facility]) Body temperature 98.0 [degF] 98.0 [degF] eCW1 ( [facility]) Systolic blood pressure 132 mm[Hg] 132 mm[Hg] e CW1 ([facility]) Diastolic blood pressure 74 mm[Hg] 74 mm[Hg] eCW1 ([facility]) Systolic blood pressure 125 mm[Hg] 125 mm[Hg] M EDENT ([facility], [facility]) Diastolic blood pressure 75 mm[Hg] 75 mm[Hg] MEDENT ([facility], [facility]) Heart rate 91 /min 91 /min MEDENT ([facility]) Respiratory rate 16 /min 16 /min MEDENT ( [facility], [facility]) Oxygen saturation in Arterial blood by Pulse oximetry 98 % 98 % MEDENT ([facility], [facility]) Body temperature 97.8 [degF] 97.8 [degF] MEDENT ([facility], [facility]) Body weight 285.00 [lb_av] 285.00 [lb_av] MEDEN T ([facility], [facility]) Body height 66 [in_i] 66 [in_i] MEDENT ([facility], [facility]) 5'6" Body mass index (BMI) [Ratio] 46.0 kg/m2 46.0 k g/m2 MEDENT ([facility], [facility]) Body weight 283 [lb_av] 283 [lb_av] eCW1 ([facility]) Systolic blood pressure 120 mm[Hg] 120 mm[Hg] e CW1 ([facility]) Diastolic blood pressure 74 mm[Hg] 74 mm[Hg] eCW1 ([facility]) Body height 67.25 [in_i] 67.25 [in_i] eCW1 ([facility]) Body mass index (BMI) [Ratio] 43.99 kg/m2 43.99 kg/m2 eCW1 ([facility]) Heart rate 86 /min 86 /min eCW1 ([facility]) Respiratory rate 18 /min 18 /min eCW1 ([facility]) Body temperature 96.3 [degF] 96.3 [degF] eCW1 ( [facility]) Body weight 283 [lb_av] 283 [lb_av] eCW1 ([facility]) Body height 67.25 [in_i] 67.25 [in_i] eCW1 ([facility]) Body mass index (BMI) [Ratio] 43.99 kg/m2 43.99 kg/m2 eCW1 ([facility]) Heart rate 86 /min 86 /min eCW1 ([facility]) Respiratory rate 18 /min 18 /min eCW1 ([facility]) Body temperature 96.3 [degF] 96.3 [degF] eCW1 ( [facility]) Systolic blood pressure 120 mm[Hg] 120 mm[Hg] e CW1 ([facility]) Diastolic blood pressure 74 mm[Hg] 74 mm[Hg] eCW1 ([facility]) Systolic blood pressure 122 mm[Hg] 122 mm[Hg] M EDENT ([facility]) Body weight 279.00 [lb_av] 279.00 [lb_av] MEDEN T ([facility]) Diastolic blood pressure 68 mm[Hg] 68 mm[Hg] MEDENT ([facility]) Body mass index (BMI) [Ratio] 44.0 kg/m2 44.0 k g/m2 MEDENT ([facility]) Body height 66.75 [in_i] 66.75 [in_i] MEDENT ([facility]) 5'6.75" Body surface area Derived from formula 2.32 m2 2.32 m2 MEDENT ([facility])
== END 2021-10-28 11:22 | disposition home or self-care (01) ==
LOC: M ED 09:48
DX: H65.03 Acute serous otitis media, bilateral (principal); J30.9 Allergic rhinitis, unspecified; J45.909 Unspecified asthma, uncomplicated; Z88.8 Allergy status to other drugs, medicaments and biological substances

== ENCOUNTER 2021-12-22 14:14 | Emergency (ER) | payer OTHER, BC ==
[~2021-12-22] VITALS: Ht 167.6 cm; Wt 129.6 kg
[~2021-12-22 14:14] MED LIST changes: +DIFL150T PO; +FLUT15.820 NARES; +NASA0.9A NARES
[2021-12-22 15:56] VITALS: BP 134/81
== END 2021-12-22 15:58 | disposition home or self-care (01) ==
LOC: M ED 14:14
DX: S69.91XA Unspecified injury of right wrist, hand and finger(s), initial encounter (principal); X58.XXXA Exposure to other specified factors, initial encounter; Y92.89 Other specified places as the place of occurrence of the external cause; Y93.9 Activity, unspecified; Y99.0 Civilian activity done for income or pay; Z88.8 Allergy status to other drugs, medicaments and biological substances

== ENCOUNTER → 2022-01-16 | Outpatient (CLI) | payer OTHER, BC | LOC: M ADAMS 11:55 → M RAD 12:39 | PROVIDERS: ATTEND Family Medicine | DX: S43.492A Other sprain of left shoulder joint, initial encounter (principal); X58.XXXA Exposure to other specified factors, initial encounter; Y92.9 Unspecified place or not applicable; Y93.9 Activity, unspecified; Y99.9 Unspecified external cause status ==

== ENCOUNTER → 2022-04-23 | Outpatient (CLI) | payer BC ==
[2022-04-23 11:22] LABS: BASO % 0.3 % (0.0-1.0); EOS # 0.1 10^3/uL (0.0-0.5); EOS % 0.7 % (0.0-3.0); HEMATOCRIT 41.4 % (36.0-47.0); HEMOGLOBIN 13.5 g/dl (12.0-15.5); LYMPH % 27.7 % (24.0-44.0); MEAN CORPUSCULAR HEMOGLOBIN 29.5 pg (27.0-33.0); MEAN CORPUSCULAR HGB CONC 32.6 g/dl (32.0-36.5); MEAN CORPUSCULAR VOLUME 90.6 fl (80.0-96.0); MONO # 0.6 10^3/uL (0.0-0.8); MONO % 8.2 % (2.0-8.0); NEUTROPHILS # 4.4 10^3/uL (1.5-8.5); NEUTROPHILS % 62.7 % (36.0-66.0); PLATELET COUNT, AUTOMATED 332 10^3/uL (150-450); RED BLOOD COUNT 4.57 10^6/uL (4.00-5.40)
[2022-04-23 12:42] LABS: HEPATITIS C VIRUS ABY INDEX 0.1 INDEX (<0.8); HIV 1&2 SCREEN CENTAUR NEGATIVE (NEGATIVE)
[2022-04-23 12:54] LABS: GC DNA AMPLIFICATION NEGATIVE (NEGATIVE)
== END ==
LOC: M PLALAB 08:46
PROVIDERS: ATTEND Specialist
DX: Z34.01 Encounter for supervision of normal first pregnancy, first trimester (principal); Z36.89 Encounter for other specified antenatal screening

== ENCOUNTER → 2022-06-20 | Outpatient (CLI) | payer BC | LOC: M WHC 13:59 | PROVIDERS: ATTEND Obstetrics & Gynecology | DX: O44.22 Partial placenta previa NOS or without hemorrhage, second trimester (principal); Z3A.19 19 weeks gestation of pregnancy ==

== ENCOUNTER → 2022-06-20 | Outpatient (REF) | payer BC | LOC: M SFHCWAGY 12:54 | PROVIDERS: ATTEND Advanced Practice Midwife | DX: O99.212 Obesity complicating pregnancy, second trimester (principal) ==

== ENCOUNTER → 2022-08-02 | Outpatient (CLI) | payer BC ==
[~2022-08-02] MED LIST changes: +ALBU6.7H6 INH; -PROV108A INH
== END ==
LOC: M WHC 09:45
PROVIDERS: ATTEND Specialist
DX: Z34.82 Encounter for supervision of other normal pregnancy, second trimester (principal); Z36.89 Encounter for other specified antenatal screening; Z3A.26 26 weeks gestation of pregnancy

== ENCOUNTER → 2022-08-08 | Outpatient (CLI) | payer BC ==
[2022-08-08 14:01] LABS: HEMATOCRIT 37.5 % (36.0-47.0); HEMOGLOBIN 12.1 g/dl (12.0-15.5); MEAN CORPUSCULAR HEMOGLOBIN 28.9 pg (27.0-33.0); MEAN CORPUSCULAR HGB CONC 32.3 g/dl (32.0-36.5); MEAN CORPUSCULAR VOLUME 89.5 fl (80.0-96.0); PLATELET COUNT, AUTOMATED 312 10^3/uL (150-450); RED BLOOD COUNT 4.19 10^6/uL (4.00-5.40); WHITE BLOOD COUNT 13.2 10^3/uL (4.0-10.0)
== END ==
LOC: M PLALAB 08:17
PROVIDERS: ATTEND Specialist
DX: Z34.82 Encounter for supervision of other normal pregnancy, second trimester (principal)

== ENCOUNTER → 2022-08-15 | Outpatient (REF) | payer BC ==
[2022-08-15 13:08] LABS: GC DNA AMPLIFICATION NEGATIVE (NEGATIVE)
== END ==
LOC: M SFHCWAGY 09:53
PROVIDERS: ATTEND Specialist
DX: Z34.82 Encounter for supervision of other normal pregnancy, second trimester (principal); R82.90 Unspecified abnormal findings in urine

== ENCOUNTER → 2022-08-28 | Outpatient (REF) | payer BC | LOC: M SFHCWAGY 13:18 | PROVIDERS: ATTEND Obstetrics & Gynecology | DX: R82.90 Unspecified abnormal findings in urine (principal) ==

== ENCOUNTER → 2022-09-12 | Outpatient (CLI) | payer BC | LOC: M WHC 08:58 | PROVIDERS: ATTEND Obstetrics & Gynecology | DX: Z36.2 Encounter for other antenatal screening follow-up (principal); Z3A.31 31 weeks gestation of pregnancy ==

== ENCOUNTER → 2022-09-24 | Outpatient (REF) ==
[2022-09-24 16:24] LABS: RSV AMPLIFICATION POSITIVE (NEGATIVE)
== END ==
LOC: M EMP 15:28
PROVIDERS: ATTEND Family Medicine
DX: Z20.822 Contact with and (suspected) exposure to COVID-19 (principal)

== ENCOUNTER → 2022-10-17 | Outpatient (REF) | payer BC | LOC: M PLALAB 13:04 | PROVIDERS: ATTEND Advanced Practice Midwife | DX: Z36.85 Encounter for antenatal screening for Streptococcus B (principal); Z3A.36 36 weeks gestation of pregnancy ==

== ENCOUNTER → 2022-10-22 | Outpatient (CLI) | payer BC | LOC: M WHC 07:09 | PROVIDERS: ATTEND Advanced Practice Midwife | DX: O99.213 Obesity complicating pregnancy, third trimester (principal); E66.9 Obesity, unspecified; Z3A.37 37 weeks gestation of pregnancy ==

== ENCOUNTER 2022-11-03 00:24 | Outpatient (CLI) | payer BC ==
[~2022-11-03] VITALS: Ht 172.7 cm; Wt 136.0 kg
[2022-11-03 04:37] VITALS: BP 139/73
== END 2022-11-03 05:26 | disposition home or self-care (01) ==
LOC: M LDO 00:24
PROVIDERS: ATTEND Specialist
DX: O60.03 Preterm labor without delivery, third trimester (principal); Z3A.39 39 weeks gestation of pregnancy
CPT/HCPCS: 59025; G0463

== ENCOUNTER 2022-11-06 09:45 | Inpatient (IN) | payer BC ==
[2022-11-06] VITALS (26 sets, daily range): BP systolic 117–185; BP diastolic 58–96
[~2022-11-06] VITALS: Ht 172.7 cm; Wt 136.4 kg
[2022-11-06] MEDS ORDERED: HOME MED LIST COMPLETE! XX SCH (10:15)
[2022-11-06] MEDS ORDERED: LIDOCAINE 1% MDV 20ML VIAL INFIL PRN (10:35)
[2022-11-06] MEDS ORDERED: TRANEXAMIC ACID INJection 1,000 MG in NS 100 ML IV PRN (10:35)
[2022-11-06] MEDS ORDERED: CARBOPROST TROMETHAMINE 250 MCG/ML AMP IM PRN (10:35)
[2022-11-06] MEDS ORDERED: OXYTOCIN INJ 10UNITS/ML 1ML VIAL IM PRN (10:35)
[2022-11-06] MEDS ORDERED: miSOPROStol 50MCG 1/2 TABLET PO ONE (10:35)
[2022-11-06] MEDS ORDERED: OXYTOCIN DRIP 30 UNITS in IV 1 EA IV PRN ×4 (10:35)
[2022-11-06 10:58] LABS: HEMATOCRIT 39.7 % (36.0-47.0); HEMOGLOBIN 13.1 g/dl (12.0-15.5); MEAN CORPUSCULAR HEMOGLOBIN 28.3 pg (27.0-33.0); MEAN CORPUSCULAR VOLUME 85.7 fl (80.0-96.0); PLATELET COUNT, AUTOMATED 268 10^3/uL (150-450); RED BLOOD COUNT 4.63 10^6/uL (4.00-5.40); WHITE BLOOD COUNT 12.1 10^3/uL (4.0-10.0)
[2022-11-06 11:16] LABS: URIC ACID 4.3 MG/DL (3.1-7.8)
[2022-11-06 11:18] LABS: LDH LACTATE DEHYDROGENASE 191 U/L (120-246)
[2022-11-06 11:28] LABS: TOTAL PROTEIN,RANDOM URINE 20.5 MG/DL (0.0-14.0)
[2022-11-06 11:33] LABS: CREATININE,RANDOM URINE 157.4 MG/DL
[2022-11-06 11:56] LABS: ALT/SGPT 15 U/L (7.0-40); AST/SGOT 24 U/L (<34); BILIRUBIN,TOTAL 0.6 MG/DL (0.3-1.2); CREATININE FOR GFR 0.56 MG/DL (0.55-1.30); GLOMERULAR FILTRATION RATE > 60.0 (>60)
[2022-11-06] MEDS ORDERED: OXYTOCIN DRIP 30 UNITS in IV 1 EA IV SCH (15:10)
[2022-11-06] MEDS: LR 1,000 ML IV SCH (15:27)
[2022-11-06] MEDS ORDERED: BUTORPHANOL 2 MG/ML 1ML VIAL IV ONE (21:30)
[2022-11-06] MEDS ORDERED: PROMETHAZINE 25MG/ML 1ML VIAL IV ONE (21:30)
[2022-11-07] VITALS (45 sets, daily range): BP systolic 101–178; BP diastolic 57–97
[2022-11-07 05:26] LABS: HEMOGLOBIN 12.4 g/dl (12.0-15.5); MEAN CORPUSCULAR HEMOGLOBIN 27.8 pg (27.0-33.0); MEAN CORPUSCULAR HGB CONC 31.8 g/dl (32.0-36.5); MEAN CORPUSCULAR VOLUME 87.4 fl (80.0-96.0); PLATELET COUNT, AUTOMATED 245 10^3/uL (150-450); RED BLOOD COUNT 4.46 10^6/uL (4.00-5.40); WHITE BLOOD COUNT 12.8 10^3/uL (4.0-10.0)
[2022-11-07] MEDS ORDERED: FENTANYL 2MCG/ML ROPIVACAINE 0.2% IN 0.9% NACL 100ML IVBAG As Ordered ONE (05:55)
[2022-11-07] MEDS ORDERED: EPIDURAL COMMENT XX SCH (06:00)
[2022-11-07] MEDS ORDERED: FENTANYL/ROPIVACAINE/NACL BAG 100 ML EPIDURAL SCH (06:00)
[2022-11-07] MEDS ORDERED: diphenhydrAMINE 50MG/ML VIAL IV PRN ×2 (06:00→12:45)
[2022-11-07] MEDS ORDERED: ONDANSETRON 4MG 2ML VIAL IV PRN ×3 (06:00→12:45)
[2022-11-07] MEDS ORDERED: EPIDURAL/PCA KEYS XX PRN (06:00)
[2022-11-07] MEDS ORDERED: NALOXONE INJ 0.4MG/1ML VIAL IV PRN ×3 (06:00→12:45)
[2022-11-07] MEDS ORDERED: ePHEDrine SULFATE 25 MG/5 ML(5MG/ML) SYRINGE IV PRN (06:00)
[2022-11-07] MEDS ORDERED: LACTATED RINGER'S 1000 ML IV PRN (06:00)
[2022-11-07] MEDS: LR 1,000 ML IV SCH ×4 (07:10→23:10)
[2022-11-07] MEDS ORDERED: BICITRA 30ML SOLN UDC PO ONE (10:45)
[2022-11-07] MEDS ORDERED: ceFAZolin SOD 3 GM IV Place Holder IV ONE (10:45)
[2022-11-07] MEDS ORDERED: AZITHROMYCIN INJ 500 MG, VIAL MATE ADAPTER 1 EACH in NS 250 ML IV ONE (10:45)
[2022-11-07] MEDS ORDERED: ceFAZolin SOD 1 GM in D5W MINI-BAG PLUS 50 ML IV ONE (10:50)
[2022-11-07] MEDS ORDERED: ceFAZolin SOD 2 GM in IV 1 EA IV ONE (10:50)
[2022-11-07] MEDS ORDERED: MORPHINE PRES-FREE INJ 10 MG/10 ML VIAL As Ordered ONE (11:15)
[2022-11-07] MEDS ORDERED: ONDANSETRON 4MG 2ML VIAL As Ordered ONE (11:15)
[2022-11-07] MEDS ORDERED: ACETAMINOPHEN 1000MG 100ML IV BAG As Ordered ONE (11:15)
[2022-11-07] MEDS ORDERED: KETOROLAC 60MG 2ML VIAL As Ordered ONE (11:15)
[2022-11-07] MEDS ORDERED: OXYTOCIN 30UNITS IN 0.9% NaCl 500ML IV BAG As Ordered ONE (11:15)
[2022-11-07] MEDS ORDERED: oxyCODONE 5MG TAB PO PRN (12:45)
[2022-11-07] MEDS ORDERED: OXYTOCIN DRIP 30 UNITS in IV 1 EA IV SCH (12:45)
[2022-11-07] MEDS ORDERED: RHOGAM 300MCG (1500IU) INJ IM SCH (12:45)
[2022-11-07] MEDS ORDERED: SIMETHICONE 80MG CHEW TAB PO PRN (12:45)
[2022-11-07] MEDS ORDERED: MORPHINE 4 MG/ML 1ML VIAL IV PRN (12:45)
[2022-11-07] MEDS ORDERED: fentaNYL 100 MCG/2 ML INJECTION IV PRN (12:45)
[2022-11-07] MEDS ORDERED: LR 1,000 ML IV SCH ×2 (12:45)
[2022-11-07] MEDS ORDERED: PERCOCET 5MG/325MG TAB PO PRN ×2 (12:45)
[2022-11-07] MEDS ORDERED: ACETAMINOPHEN 500 MG TAB PO PRN (12:45)
[2022-11-07] MEDS ORDERED: METOCLOPRAMIDE INJ 10MG/2ML VIAL IV PRN (12:45)
[2022-11-07] MEDS: SLF 3 ML SYR IV SCH ×2 (12:45→20:45)
[2022-11-07] MEDS ORDERED: **NOTE PATIENT COMMENT** MISC XX SCH (12:45)
[2022-11-07] MEDS ORDERED: COLA100C5 PO (12:50)
[2022-11-07] MEDS ORDERED: IBUP80TA PO (12:50)
[2022-11-07] MEDS ORDERED: PERCOCET PO (12:50)
[2022-11-07] MEDS: KETOROLAC 30 MG/ML 1ML VIAL IV SCH ×2 (18:24→23:37)
[2022-11-07] MEDS: DOCUSATE SODIUM 100MG CAPSULE PO SCH (21:02)
[2022-11-08] MEDS: ENOXAPARIN 30MG/0.3ML SYRINGE (J1650 PER 10MG) SC SCH ×3 (00:03→22:47)
[2022-11-08 02:00] VITALS: BP 110/56
[2022-11-08] MEDS: SLF 3 ML SYR IV SCH (04:45)
[2022-11-08 06:00] VITALS: BP 120/64
[2022-11-08] MEDS: KETOROLAC 30 MG/ML 1ML VIAL IV SCH (06:03)
[2022-11-08 07:10] LABS: HEMATOCRIT 32.9 % (36.0-47.0); HEMOGLOBIN 10.6 g/dl (12.0-15.5); MEAN CORPUSCULAR HEMOGLOBIN 28.3 pg (27.0-33.0); MEAN CORPUSCULAR HGB CONC 32.2 g/dl (32.0-36.5); PLATELET COUNT, AUTOMATED 236 10^3/uL (150-450); RED BLOOD COUNT 3.74 10^6/uL (4.00-5.40); WHITE BLOOD COUNT 12.4 10^3/uL (4.0-10.0)
[2022-11-08] MEDS: DOCUSATE SODIUM 100MG CAPSULE PO SCH ×2 (09:26→20:31)
[2022-11-08] MEDS: PRENATAL VITAMINS CHEWABLE TABLET PO SCH (09:27)
[2022-11-08 10:00] VITALS: BP 119/71
[2022-11-08 14:00] VITALS: BP 126/70
[2022-11-08] MEDS: IBUPROFEN 800 MG TAB PO SCH ×2 (14:13→22:47)
[2022-11-08 18:00] VITALS: BP 129/76
[2022-11-08 22:00] VITALS: BP 131/69
[2022-11-09] MEDS: IBUPROFEN 800 MG TAB PO SCH (05:18)
[2022-11-09 06:00] VITALS: BP 132/62
[2022-11-09] MEDS ORDERED: MEASLES,MUMPS,RUBELLA VACCINE INJ (MMR-II) SC.IMMUN ONE (09:00)
[2022-11-09] MEDS: ENOXAPARIN 30MG/0.3ML SYRINGE (J1650 PER 10MG) SC SCH (09:09)
[2022-11-09] MEDS: DOCUSATE SODIUM 100MG CAPSULE PO SCH (09:09)
[2022-11-09] MEDS: PRENATAL VITAMINS CHEWABLE TABLET PO SCH (09:10)
== END 2022-11-09 14:54 | disposition home or self-care (01) | DRG 540 ==
LOC: M LDI 09:45 → M OBS 11-07 14:10
PROVIDERS: ADMIT Advanced Practice Midwife; ATTEND Obstetrics & Gynecology
PROC: 3E0P7GC Introduction of Other Therapeutic Substance into Female Reproductive, Via Natural or Artificial Opening (ICD-10-PCS; 2022-11-06)
PROC: 10D00Z1 Extraction of Products of Conception, Low, Open Approach (ICD-10-PCS; principal; 2022-11-07 12:04)
DX: O13.4 Gestational [pregnancy-induced] hypertension without significant proteinuria, complicating childbirth (principal); O41.03X0 Oligohydramnios, third trimester, not applicable or unspecified; O99.214 Obesity complicating childbirth; E66.01 Morbid (severe) obesity due to excess calories; Z3A.39 39 weeks gestation of pregnancy; O99.344 Other mental disorders complicating childbirth; F41.9 Anxiety disorder, unspecified; O62.0 Primary inadequate contractions; Z37.0 Single live birth

== ENCOUNTER → 2023-07-25 | Outpatient (REF) | payer OTHER, MEDICAID ==
[~2023-07-25] MED LIST changes: +COLA100C5 PO; +IBUP80TA PO; +PERCOCET PO
== END ==
LOC: M SFHCWAGY 17:09
PROVIDERS: ATTEND Obstetrics & Gynecology
DX: Z12.4 Encounter for screening for malignant neoplasm of cervix (principal)

== ENCOUNTER → 2024-12-03 | Outpatient (CLI) | payer BC ==
[2024-12-03 09:39] LABS: BASO % 0.4 % (0.0-1.0); EOS % 0.4 % (0.0-3.0); HEMOGLOBIN 13.8 g/dl (12.0-15.5); LYMPH # 2.3 10^3/uL (1.5-5.0); LYMPH % 31.5 % (24.0-44.0); MEAN CORPUSCULAR HEMOGLOBIN 29.6 pg (27.0-33.0); MEAN CORPUSCULAR HGB CONC 33.7 g/dl (32.0-36.5); MEAN CORPUSCULAR VOLUME 87.8 fl (80.0-96.0); MONO # 0.5 10^3/uL (0.0-0.8); MONO % 6.3 % (2.0-8.0); NEUTROPHILS # 4.5 10^3/uL (1.5-8.5); PLATELET COUNT, AUTOMATED 370 10^3/uL (150-450); RED BLOOD COUNT 4.67 10^6/uL (4.00-5.40); WHITE BLOOD COUNT 7.3 10^3/uL (4.0-10.0)
[2024-12-03 10:00] LABS: ALBUMIN 3.4 G/DL (3.2-5.2); ALKALINE PHOSPHATASE 68 U/L (35-104); ALT/SGPT 15 U/L (7.0-40); AST/SGOT 11 U/L (<34); BILIRUBIN,TOTAL 0.8 MG/DL (0.3-1.2); BLOOD UREA NITROGEN 9 MG/DL (9-23); CALCIUM LEVEL 9.5 MG/DL (8.5-10.1); CARBON DIOXIDE LEVEL 27 MMOL/L (20-31); CHLORIDE LEVEL 104 MMOL/L (98-107); CHOLESTEROL LEVEL 260 MG/DL (<200); CHOLESTEROL RISK RATIO 4.01 (<5); CREATININE FOR GFR 0.67 MG/DL (0.55-1.30); GLOMERULAR FILTRATION RATE > 60.0 (>60); GLUCOSE, FASTING 79 MG/DL (60-100); HDL CHOLESTEROL 64.7 MG/DL (>40); LDL CHOLESTEROL 162.3 MG/DL (<100); NON-HDL-C 195.3 MG/DL; POTASSIUM SERUM 4.3 MMOL/L (3.5-5.1); SODIUM LEVEL 140 MMOL/L (136-145); TOTAL PROTEIN 7.5 G/DL (5.7-8.2); TRIGLYCERIDES LEVEL 165 MG/DL (<150)
[2024-12-03 10:01] LABS: THYROID STIMULATING HORMONE 1.541 uIU/ML (0.55-4.78)
[2024-12-03 10:02] LABS: FREE T4 1.13 NG/DL (0.89-1.76)
[2024-12-03 10:09] LABS: HEMOGLOBIN A1c 5.2 % (4.0-6.0)
== END ==
LOC: M LAB 08:29
PROVIDERS: ATTEND Physician Assistant
DX: J45.20 Mild intermittent asthma, uncomplicated (principal); F41.1 Generalized anxiety disorder; Z68.42 Body mass index [BMI] 45.0-49.9, adult; Z13.220 Encounter for screening for lipoid disorders; Z13.1 Encounter for screening for diabetes mellitus

== ENCOUNTER → 2025-03-01 | Outpatient (REF) | payer BC ==
[2025-03-03 13:02] LABS: HPV APTIMA Not Detected (Not Detected)
== END ==
LOC: M SFHCWAGY 15:06
PROVIDERS: ATTEND Obstetrics & Gynecology
DX: Z12.4 Encounter for screening for malignant neoplasm of cervix (principal); R87.610 Atypical squamous cells of undetermined significance on cytologic smear of cervix (ASC-US)
CPT/HCPCS: 87624; G0123